=== PATIENT | male | born 1965 | race Caucasian/White ===

== ENCOUNTER → 2016-11-11 | Outpatient (CLI) | payer OTHER ==
[~2016-11-11] MED LIST: AMLACTIN400 GM TP; BUSPAR 10MG10 MG PO; CALMOSEPTINE OI71 GM TOP; DEPAKOTE500 MG PO; EPIPEN JR0.15 MG/0. INJ; EXENATIDE SC; FISH OIL 1,0001 EACH PO; FLOMAX 0.4 MG0.4 MG PO; FLONASE 0.05% N16 GM; ICAPS TABLET1 EACH PO; LEVAQUIN500 MG PO; LEXAPRO10 MG PO; MEDROL4 MG PO; NEURONTIN 300300 MG PO; PAIN RELIEVER650 MG PO; PHENERGAN 12.12.5 M1 PO; PLAVIX 75 MG TA75 MG PO; PROTONIX40 MG PO; REMERON15 MG PO; SEROQUEL200 MG PO; SEROQUEL400 MG PO; SYMBICORT 160-1 INHA INH; TRICOR145 MG PO; TRIFLUOPERAZINE1 MG PO; VASOTEC 10 MG T10 MG PO; VASOTEC10 MG PO; VISTARIL 50 MG50 MG PO; VITAMIN D50000 UNIT PO; ZOCOR40 MG PO
[2016-11-11 13:06] LABS: BUN/CREATININE RATIO 17 (0-10)
== END ==
LOC: LAB 08:42
PROVIDERS: Internal Medicine Nephrology
DX: N18.2 Chronic kidney disease, stage 2 (mild) (principal); E83.52 Hypercalcemia
CPT/HCPCS: 36415; 80053; 82043; 82570

== ENCOUNTER → 2017-01-01 | Outpatient (CLI) | payer OTHER ==
[2017-01-01 09:11] LABS: HEMOGLOBIN 12.6 gm/dl (14.0-17.5); RED BLOOD COUNT 4.24 M/UL (4.20-5.50); WHITE BLOOD COUNT 6.2 K/UL (4.5-11.0)
== END ==
LOC: LAB 08:24
DX: B18.2 Chronic viral hepatitis C (principal)
CPT/HCPCS: 36415; 80053; 85027; 85610

== ENCOUNTER → 2017-01-09 | Outpatient (CLI) | payer OTHER | LOC: LAB 12:56 | PROVIDERS: Nurse Practitioner Primary Care | DX: E87.5 Hyperkalemia (principal) | CPT/HCPCS: 36415; 80048 ==

== ENCOUNTER → 2017-01-22 | Outpatient (CLI) | payer OTHER ==
[2017-01-22 10:52] LABS: HEMOGLOBIN 12.1 gm/dl (14.0-17.5); RED BLOOD COUNT 4.11 M/UL (4.20-5.50); WHITE BLOOD COUNT 5.5 K/UL (4.5-11.0)
[2017-01-22 11:15] LABS: BUN/CREATININE RATIO 14 (0-10)
== END ==
LOC: LAB 09:24 → EXRD 09:24
PROVIDERS: Nurse Practitioner Primary Care
DX: E11.9 Type 2 diabetes mellitus without complications (principal); E55.9 Vitamin D deficiency, unspecified
CPT/HCPCS: 36415; 80053; 80061; 81001; 83036; 85025

== ENCOUNTER 2017-02-03 18:13 | Emergency (ER) | payer OTHER ==
[~2017-02-03 18:13] MED LIST changes: -CALMOSEPTINE OI71 GM TOP; -EPIPEN JR0.15 MG/0. INJ; -LEXAPRO10 MG PO; -PLAVIX 75 MG TA75 MG PO; -VASOTEC10 MG PO
[2017-03-13] MEDS ORDERED: LEXAPRO10 MG PO (22:12)
[2017-03-13] MEDS ORDERED: SEROQUEL400 MG PO (22:16)
[2017-03-13] MEDS ORDERED: VASOTEC10 MG PO (22:17)
[2017-03-13] MEDS ORDERED: NEURONTIN 300300 MG PO (22:18)
[2017-03-13] MEDS ORDERED: CALMOSEPTINE OI71 GM TOP (22:20)
[2017-03-15] MEDS ORDERED: PLAVIX 75 MG TA75 MG PO (13:42)
[2017-03-15] MEDS ORDERED: EPIPEN JR0.15 MG/0. INJ (14:07)
== END 2017-02-03 19:55 | disposition left against medical advice (07) ==
LOC: ER1 18:13
DX: Z53.21 Procedure and treatment not carried out due to patient leaving prior to being seen by health care provider (principal)
CPT/HCPCS: 93005

== ENCOUNTER 2017-02-04 11:56 | Emergency (ER) | payer OTHER ==
[2017-02-04 13:42] LABS: HEMOGLOBIN 13.5 gm/dl (14.0-17.5); RED BLOOD COUNT 4.57 M/UL (4.20-5.50); WHITE BLOOD COUNT 8.3 K/UL (4.5-11.0)
[2017-03-13] MEDS ORDERED: LEXAPRO10 MG PO (22:12)
[2017-03-13] MEDS ORDERED: SEROQUEL400 MG PO (22:16)
[2017-03-13] MEDS ORDERED: VASOTEC10 MG PO (22:17)
[2017-03-13] MEDS ORDERED: NEURONTIN 300300 MG PO (22:18)
[2017-03-13] MEDS ORDERED: CALMOSEPTINE OI71 GM TOP (22:20)
[2017-03-15] MEDS ORDERED: PLAVIX 75 MG TA75 MG PO (13:42)
[2017-03-15] MEDS ORDERED: EPIPEN JR0.15 MG/0. INJ (14:07)
== END 2017-02-04 16:13 | disposition home or self-care (01) ==
LOC: ER1 11:56
PROVIDERS: Family Medicine
DX: R07.89 Other chest pain (principal); R10.9 Unspecified abdominal pain; R11.2 Nausea with vomiting, unspecified; E11.9 Type 2 diabetes mellitus without complications; E86.0 Dehydration; J45.909 Unspecified asthma, uncomplicated; F79 Unspecified intellectual disabilities; G40.909 Epilepsy, unspecified, not intractable, without status epilepticus; F17.200 Nicotine dependence, unspecified, uncomplicated; Z88.6 Allergy status to analgesic agent; Z79.899 Other long term (current) drug therapy
CPT/HCPCS: 36415; 71010; 80053; 81001; 82550; 82553; 83690; 83874; 84484; 85025; 93005; 96361; 96374; 96375; 96376; 99285; J2270; J2405

== ENCOUNTER → 2017-05-20 | Outpatient (CLI) | payer OTHER ==
[~2017-05-20] MED LIST changes: +CALMOSEPTINE OI71 GM TOP; +EPIPEN JR0.15 MG/0. INJ; +LEXAPRO10 MG PO; +PLAVIX 75 MG TA75 MG PO; +VASOTEC10 MG PO
== END ==
LOC: RAD 13:41
DX: M54.2 Cervicalgia (principal)
CPT/HCPCS: 72050